=== PATIENT | male | born 1980 | race Two or more races ===

== ENCOUNTER 2017-06-08 14:29 | Emergency (ER) | payer BC ==
--- NOTE | 2017-06-08 15:35 | XR ---
Right ankle HISTORY: Trauma and pain, swelling 3 views of the right ankle No comparisons Ossific densities are present distal to the fibula which are displaced. There is associated soft tiss ue swelling. The larger of the fracture fragments may be better corticated than the other. No disloca tion. Bone mineralization is maintained. There is a plantar spur. Spurring also present at the tibiot alar joint, intertarsal joints. IMPRESSION: Findings likely represent avulsion or chip fractures of the distal fibula possibly appear ing ages. Soft tissue swelling. Osteoarthritis.
--- NOTE | 2017-06-08 16:04 | ED ---
General Adult HPI - General Chief complaint: Extremity Injury, Lower Stated complaint: R Leg Pain Time Seen by Provider: 06/08/17 15:07 Source: patient, RN notes reviewed Mode of arrival: ambulatory Limitations: no limitations - History of Present Illness Initial comments: 36-year-old male presents the emergency department for a chief complaint of right ankle pain. Patient states he was walking a couple weeks ago and twisted his ankle. He has had pain ever since. It is causing him to limp because it hurts to bear weight. Patient denies any pain in the calf, knee, or hip on the right extremity. Patient states he has full sensation in both lower extremities bilaterally. Patient has not seen anyone for this problem. - Related Data Home Medications Medication Instructions Recorded Confirmed Legatrin Pm 2 tab PO HS PRN 06/08/17 06/08/17 Allergies Allergy/AdvReac Type Severity Reaction Status Date / Time No Known Allergies Allergy Verified 06/08/17 15:08 Review of Systems ROS Statement: Those systems with pertinent positive or pertinent negative responses have been documented in the HPI. ROS Other: All systems not noted in ROS Statement are negative. Past Medical History Past Medical History: No Reported History History of Any Multi-Drug Resistant Organisms: None Reported Past Surgical History: No Surgical Hx Reported Past Psychological History: No Psychological Hx Reported Smoking Status: Never smoker Past Alcohol Use History: Occasional Past Drug Use History: None Reported General Exam Limitations: no limitations Head exam: Present: atraumatic, normocephalic, normal inspection Eye exam: Present: normal appearance, PERRL, EOMI. Absent: scleral icterus, conjunctival injection, periorbital swelling Pupils: Present: normal accommodation ENT exam: Present: normal exam, mucous membranes moist Respiratory exam: Present: normal lung sounds bilaterally. Absent: respiratory distress, wheezes, rales, rhonchi, stridor Cardiovascular Exam: Present: regular rate, normal rhythm, normal heart sounds. Absent: systolic murmur, diastolic murmur, rubs, gallop, clicks Extremities exam: Present: full ROM, tenderness (Tenderness of the right ankle) , normal capillary refill (Refill less than 2 seconds bilaterally), joint swelling (Swelling of the right ankle), other (Pedal pulses 2+ in the lower extremities bilaterally). Absent: calf tenderness (Patient denies tenderness in the r calf. Patient denies pain in the calf on the foot is flexed on the right extremity.) Neurological exam: Present: alert, oriented X3 Psychiatric exam: Present: normal affect, normal mood Course Vital Signs 06/08/17 14:53 Temperature 98.3 F Pulse Rate 99 Respiratory 18 Rate Blood Pressure 155/66 O2 Sat by Pulse 100 Oximetry Procedures - Procedures Initial comment: Neurovascular intact before splint application Indication: right fibula avulsion fracture Type: short saddle splint Wounds: no abrasions or lacerations underneath splint Neurovascular status: patient has sensation and movement of digits extending outside the splint, there is no cyanosis, capillary refill < 2 seconds Follow-up: patient given number for orthopedics and instructed to phone to make an appointment. Patient aware he can return to the Emergency Department if any difficulties. Medical Decision Making - Medical Decision Making 36-year-old male presents to the emergency department for a chief complaint of right ankle pain. Patient states he rolled his ankle a couple weeks ago and has a swelling in pain ever since. Patient states it is painful to bear weight. Patient has equal sensation in both extremities bilaterally. Capillary refill and pedal pulses 2+. Patient denies tenderness in the calves, knees, and hips bilaterally. Patient denies pain or tenderness in the foot. 3 xr views of the right ankle demonstrate avulsion or chip fracture of the distal fibula. Patient is splinted in a saddle splint. Neurovascular intact before and after splint is applied. Patient will follow up with orthopedics in one to 2 days. He will return to the emergency department if he has worsening of symptoms. Disposition Clinical Impression: Fibula fracture Disposition: HOME SELF-CARE Condition: Good Instructions: Ankle Fracture (ED) Additional Instructions: Please return to the emergency department if symptoms worsen. Otherwise follow- up with orthopedics in one to 2 days. Take ibuprofen and Tylenol for pain relief. Referrals: None,Stated [Primary Care Provider] - 1-2 days Kory Peoples MD [STAFF PHYSICIAN] - 1-2 days Time of Disposition: 16:06
[2017-06-08 16:48] VITALS: BP 128/78; PULSE 78; RESP 16; TEMP 97.6
== END 2017-06-08 16:48 | disposition home or self-care (01) ==
LOC: EC 14:29
DX: S82.831A Other fracture of upper and lower end of right fibula, initial encounter for closed fracture (principal); X50.1XXA Overexertion from prolonged static or awkward postures, initial encounter
CPT/HCPCS: 29515; 99283

== ENCOUNTER 2018-03-30 11:05 | Emergency (ER) | payer BC ==
[2018-03-30 11:11] VITALS: RESP 18
[2018-03-30] MEDS ORDERED: DEXAMETHASONE SOD PHOSPHATE 10 MG/ML 1 ML VIAL IV STA (12:10)
[2018-03-30] MEDS ORDERED: SODIUM CHLORIDE 0.9% 500 ML 500 ML IV ONE (12:10)
--- NOTE | 2018-03-30 12:13 | ED ---
General Adult HPI - General Chief complaint: Extremity Injury, Lower Stated complaint: body numbness Time Seen by Provider: 03/30/18 11:26 Source: patient, RN notes reviewed, old records reviewed Mode of arrival: wheelchair Limitations: no limitations - History of Present Illness Initial comments: 37 -year-old male presents with 3 days of bilateral lower extremity numbness and mild weakness. Patient states that he had similar symptoms approximately one year ago, did see an orthopedic physician and received epidural injections which improved his symptoms. Denies back pain. Denies injury. States the numbness is throughout both legs. He does report some weakness which is worse on the right. Denies any symptoms in his upper extremities. Patient states he has been dealing with some constipation, no bowel incontinence. No fever chills , no IV drug use, numbness is throughout the legs, no specific satellite anesthesia. - Related Data Previous Rx's Medication Instructions Recorded predniSONE 50 mg PO DAILY #5 tab 03/30/18 Allergies Allergy/AdvReac Type Severity Reaction Status Date / Time No Known Allergies Allergy Verified 03/30/18 11:44 Review of Systems ROS Statement: Those systems with pertinent positive or pertinent negative responses have been documented in the HPI. ROS Other: All systems not noted in ROS Statement are negative. Past Medical History Past Medical History: No Reported History History of Any Multi-Drug Resistant Organisms: None Reported Past Surgical History: No Surgical Hx Reported Additional Past Surgical History / Comment(s): 2016 colonscopy Past Psychological History: No Psychological Hx Reported Smoking Status: Never smoker Past Alcohol Use History: Occasional Past Drug Use History: None Reported General Exam Limitations: no limitations Head exam: Present: atraumatic, normocephalic Eye exam: Present: normal appearance, PERRL Neck exam: Present: normal inspection. Absent: tenderness Respiratory exam: Present: normal lung sounds bilaterally. Absent: respiratory distress, wheezes Cardiovascular Exam: Present: normal rhythm, tachycardia GI/Abdominal exam: Present: soft. Absent: distended, tenderness Rectal exam: Present: normal inspection, normal rectal tone. Absent: black stool, bloody stool Extremities exam: Present: normal inspection, normal capillary refill, other Back exam: Absent: tenderness, paraspinal tenderness, vertebral tenderness Neurological exam: Present: alert, oriented X3 Expanded Patient oriented to: Present: person, place, time Speech: Present: fluid speech Sensory exam: Upper Extremity Light Touch: Normal, Lower Extremity Light Touch: Abnormal Right, Abnormal Left Motor strength exam: RUE: 5, LUE: 5, RLE: 4, LLE: 5 DTR: Patellar (R): 1+, Patellar (L): 2+ Eye Response: (4) open spontaneously Motor Response: (6) obeys commands Verbal Response: (5) oriented Psychiatric exam: Present: normal affect, normal mood Skin exam: Present: warm, dry, intact. Absent: cyanosis, diaphoretic Course Vital Signs 03/30/18 03/30/18 11:06 14:30 Temperature 98.1 F Pulse Rate 111 H 82 Respiratory 18 18 Rate Blood Pressure 164/97 146/98 O2 Sat by Pulse 99 98 Oximetry Medical Decision Making - Medical Decision Making 37-year-old male presenting with bilateral lower extremity numbness for the past 3 days. On exam patient has decreased sensation bilaterally lower extremities. He has 2-3+ patellar reflex on the left, 1-2+ on the right. He has 4 out of 5 strength on the right 5 out of 5 strength in the left lower extremity. Remainder of normal exam in the upper extremities within normal limits. Patient admits that he had these same symptoms one year ago, he was seen by orthopedics and received epidural injections which improved his symptoms. Patient has no back pain, no pain on exam. There is concern for cord impingement or radiculopathy, CT of the thoracic and lumbar spine was obtained. Patient has moderate to severe left-sided foraminal stenosis L5-S1 as well as moderate disease throughout the lumbar and thoracic spine. No cord compression, no signs of cauda equina. Patient has normal CBC, normal CMP, normal urinalysis. Patient is able to void in the emergency department with postoperative residual of 49. Given that these symptoms are similar to previous episode one year ago which improved with steroid injection by orthopedics and will start patient on oral steroids and will refer her to orthopedics for further evaluation treatment. I also gave the patient outpatient neurology follow-up. He will return with any worsening or changing symptoms including progressive weakness or numbness. Worsening of his condition. - Lab Data Result diagrams: 03/30/18 11:57 03/30/18 11:57 Lab Results 03/30/18 03/30/18 03/30/18 Range/Units 11:57 11:57 13:04 WBC 8.4 (3.8-10.6) k/uL RBC 5.56 (4.30-5.90) m/uL Hgb 15.7 (13.0-17.5) gm/dL Hct 46.7 (39.0-53.0) % MCV 83.9 (80.0-100.0) fL MCH 28.2 (25.0-35.0) pg MCHC 33.6 (31.0-37.0) g/dL RDW 13.5 (11.5-15.5) % Plt Count 192 (150-450) k/uL Neutrophils % 69 % Lymphocytes % 23 % Monocytes % 5 % Eosinophils % 1 % Basophils % 1 % Neutrophils # 5.8 (1.3-7.7) k/uL Lymphocytes # 2.0 (1.0-4.8) k/uL Monocytes # 0.4 (0-1.0) k/uL Eosinophils # 0.1 (0-0.7) k/uL Basophils # 0.0 (0-0.2) k/uL Sodium 140 (137-145) mmol/L Potassium 4.5 (3.5-5.1) mmol/L Chloride 106 (98-107) mmol/L Carbon Dioxide 24 (22-30) mmol/L Anion Gap 10 mmol/L BUN 13 (9-20) mg/dL Creatinine 0.72 (0.66-1.25) mg/dL Est GFR (CKD-EPI)AfAm >90 (>60 ml/min/1.73 sqM) Est GFR (CKD-EPI)NonAf >90 (>60 ml/min/1.73 sqM) Glucose 145 H (74-99) mg/dL Calcium 9.4 (8.4-10.2) mg/dL Total Bilirubin 0.7 (0.2-1.3) mg/dL AST 30 (17-59) U/L ALT 55 (21-72) U/L Alkaline Phosphatase 77 (38-126) U/L Total Protein 7.7 (6.3-8.2) g/dL Albumin 4.9 (3.5-5.0) g/dL Urine Color Yellow Urine Appearance Clear (Clear) Urine pH 7.5 (5.0-8.0) Ur Specific [place] 1.014 (1.001-1.035) Urine Protein 1+ H (Negative) Urine Glucose (UA) Negative (Negative) Urine Ketones Negative (Negative) Urine Blood Negative (Negative) Urine Nitrite Negative (Negative) Urine Bilirubin Negative (Negative) Urine Urobilinogen <2.0 (<2.0) mg/dL Ur Leukocyte Esterase Negative (Negative) Urine Mucus Rare H (None) /hpf Disposition Clinical Impression: Lumbar radiculopathy Disposition: HOME SELF-CARE Condition: Fair Instructions: Lumbar Radiculopathy (ED) Prescriptions: predniSONE 50 mg PO DAILY #5 tab Is patient prescribed a controlled substance at d/c from ED?: No Referrals: None,Stated [Primary Care Provider] - 1-2 days Matt Johnson DO [Doctor of Osteopathic Medicine] - 1-2 days Nyasia Thayer MD [STAFF PHYSICIAN] - 1-2 days Time of Disposition: 15:40
[2018-03-30 12:17] LABS: ALT 55 U/L (21-72); AST 30 U/L (17-59); Albumin 4.9 g/dL (3.5-5.0); Alkaline Phosphatase 77 U/L (38-126); Anion Gap 10 mmol/L; Blood Urea Nitrogen 13 mg/dL (9-20); Calcium 9.4 mg/dL (8.4-10.2); Carbon Dioxide 24 mmol/L (22-30); Chloride 106 mmol/L (98-107); Glucose 145 mg/dL (74-99); Potassium 4.5 mmol/L (3.5-5.1); Sodium 140 mmol/L (137-145); Total Bilirubin 0.7 mg/dL (0.2-1.3); Total Protein 7.7 g/dL (6.3-8.2)
[2018-03-30 12:22] LABS: Basophils % (A) 1 %; Eosinophils # (A) 0.1 k/uL (0-0.7); Eosinophils % (A) 1 %; HCT 46.7 % (39.0-53.0); HGB 15.7 gm/dL (13.0-17.5); Lymphocytes % (A) 23 %; MCH 28.2 pg (25.0-35.0); MCHC 33.6 g/dL (31.0-37.0); MCV 83.9 fL (80.0-100.0); Mean Platelet Volume 7.4; Monocytes # (A) 0.4 k/uL (0-1.0); Monocytes % (A) 5 %; Neutrophils # (A) 5.8 k/uL (1.3-7.7); Neutrophils % (A) 69 %; Platelet Count 192 k/uL (150-450); RBC 5.56 m/uL (4.30-5.90); RDW 13.5 % (11.5-15.5); WBC 8.4 k/uL (3.8-10.6)
--- NOTE | 2018-03-30 13:03 | CT ---
EXAMINATION TYPE: CT thor lumbar spine wo con DATE OF EXAM: 03/30/2018 COMPARISON: None HISTORY: 37-year-old male Numbness from waist down to toes TECHNIQUE: Contiguous axial scanning of the thoracic and lumbar spine without IV contrast. Coronal an d sagittal reconstructions performed. CT DLP: 3190 mGycm Automated exposure control for dose reduction was used. FINDINGS: Thoracic spine: Vertebral body heights are preserved and alignment is maintained. No acute fracture of the thoracic spine. Scattered small endplate Schmorl's nodes are present mid to lower thoracic spine with mild endplate spondylosis. On the right, changes often variable mild neuroforaminal narrowing. On the left, changes result in moderate neuroforaminal narrowing at T3-T4 and T4-T5 and mild particul jaime at T5-T6. Lumbar spine: No prevertebral or paravertebral soft tissue abnormality seen. Mild facet degenerative change and mild multilevel degenerative disc disease with bulging discs. Smal l superior endplate Schmorl's node at L2. Vertebral body heights are preserved and alignment is maint ained. No pars interarticularis defect. No large focal disc herniation identified by CT. On the right, changes result in mild neural foraminal narrowing at L4-L5 and [id number] at L5-S 1. On the left, changes result in mild to moderate neuroforaminal narrowing at L4-L5 and moderate to severe at L5-S1. IMPRESSION: 1. NO VERTEBRAL COMPRESSION COLLAPSE OR MALALIGNMENT SEEN. 2. SCATTERED MILD DEGENERATIVE DISC DISEASE AND SMALL ENDPLATE SCHMORL'S NODES. 3. ADDITIONAL SCATTERED FACET ARTHROPATHY. CHANGES RESULT IN VARIABLE MILD NEUROFORAMINAL NARROWING O F THE THORACIC SPINE, MORE MODERATE ON THE LEFT AT T3-T4 AND T4-T5. 4. THERE MAY BE A MODERATE TO SEVERE LEFT-SIDED NEURAL FORAMINAL STENOSIS AT L5-S1 AND VARIABLE MILD TO MODERATE IN THE REMAINDER OF THE LOWER LUMBAR SPINE.
[2018-03-30 15:20] LABS: Appearance,Urine Clear (Clear); Bilirubin,Urine Negative (Negative); Blood,Urine Negative (Negative); Color,Urine Yellow; Glucose,Urine (UA) Negative (Negative); Ketones,Urine Negative (Negative); Leukocyte Esterase,Urine Negative (Negative); Mucus,Urine Rare /hpf; Nitrite,Urine Negative (Negative); PH, Urine 7.5 (5.0-8.0); Protein,Urine 1+ (Negative); Specific Gravity,Urine 1.014 (1.001-1.035); Urobilinogen,Urine <2.0 mg/dL (<2.0)
[2018-03-30 15:59] VITALS: BP 157/86; PULSE 88; TEMP 97.3
== END 2018-03-30 15:59 | disposition home or self-care (01) ==
LOC: EC 11:05
DX: M54.16 Radiculopathy, lumbar region (principal); R00.0 Tachycardia, unspecified; M99.73 Connective tissue and disc stenosis of intervertebral foramina of lumbar region; M48.8X4 Other specified spondylopathies, thoracic region; M48.8X5 Other specified spondylopathies, thoracolumbar region; K59.00 Constipation, unspecified
CPT/HCPCS: 51798; 36415; 80053; 85025; 81001; 72128; 72131; 99284; 96374; 96361 ×3; J1100

== ENCOUNTER 2018-09-20 04:06 | Observation (INO) | payer BC ==
[2018-09-20] MEDS ORDERED: SODIUM CHLORIDE 0.9% 1,000 ML IV ONE (07:06)
--- NOTE | 2018-09-20 07:37 | ED ---
Neuro HPI - General Chief Complaint: Neuro Symptoms/Deficit Stated Complaint: Leg numbness Time Seen by Provider: 09/20/18 06:35 Source: patient Mode of arrival: EMS Limitations: no limitations - History of Present Illness Is the patient presenting with stroke symptoms?: No Last Known Well Date: 09/19/18 Last Known Well Time: 08:45 -: hour(s) Initial Comments: This patient is 38-year-old man presenting to be evaluated for numbness of the bilateral lower extremities also the left upper extremity. Patient had been seen over at [facility]. He feels that the symptoms are similar to previous MS exacerbation that he had had. He was therefore transferred over here to have steroid therapy and neurology consultation. The patient with the previous flareups had reportedly had issues related to vision, that he states he is not having today. Location: left arm, right arm, left leg History of same: Yes Place: home Severity: mild Quality: tingling Improves With: none Worsens With: none Context: gradual onset Associated Symptoms: denies other symptoms Treatments Prior to Arrival: none - Related Data Home Medications: Home Medications Medication Instructions Recorded Confirmed Cholecalciferol (Vitamin D3) 2,000 unit PO DAILY 09/20/18 09/20/18 [Vitamin D3] L.acidoph,Paracasei, B.lactis 1 cap PO DAILY 09/20/18 09/20/18 [Probiotic] Polyethylene Glycol 3350 [Miralax] 17 gm PO DAILY 09/20/18 09/20/18 Sennosides/Docusate Sodium 2 tab PO HS 09/20/18 09/20/18 [Senna-S Laxative Tablet] Allergies/Adverse Reactions: Allergies Allergy/AdvReac Type Severity Reaction Status Date / Time No Known Allergies Allergy Verified 09/20/18 08:31 Review of Systems ROS Statement: Those systems with pertinent positive or pertinent negative responses have been documented in the HPI. ROS Other: All systems not noted in ROS Statement are negative. Constitutional: Denies: fever, chills, weakness Eyes: Denies: eye pain, vision change Respiratory: Denies: cough, dyspnea Cardiovascular: Denies: chest pain, palpitations, edema Gastrointestinal: Denies: abdominal pain, nausea, vomiting Genitourinary: Denies: dysuria, hematuria Musculoskeletal: Denies: back pain Skin: Denies: rash Neurological: Reports: headache, paresthesias. Denies: weakness, numbness, confusion, abnormal gait General Exam Limitations: no limitations General appearance: alert, in no apparent distress Head exam: Present: atraumatic, normocephalic Eye exam: Present: normal appearance, PERRL, EOMI. Absent: scleral icterus, conjunctival injection, nystagmus ENT exam: Present: normal oropharynx, mucous membranes moist Neck exam: Present: full ROM Respiratory exam: Present: normal lung sounds bilaterally. Absent: respiratory distress, wheezes, rales, rhonchi, stridor Cardiovascular Exam: Present: regular rate, normal rhythm, normal heart sounds. Absent: systolic murmur, diastolic murmur, rubs, gallop GI/Abdominal exam: Present: soft. Absent: distended, tenderness, guarding, rebo und Extremities exam: Present: normal inspection, normal capillary refill. Absent: pedal edema, calf tenderness Back exam: Present: normal inspection. Absent: CVA tenderness (R), CVA tenderness (L) Skin exam: Present: warm, dry, intact, normal color. Absent: rash Stroke MDM - Medical Decision Making Patient's 38-year-old man who gives history of prior MS. Transferred here from the other hospital for symptoms she states are identical to that flare. Patient be admitted here to have neurology consultation. He is started on high-dose Solu-Medrol. Past Medical History Past Medical History: No Reported History History of Any Multi-Drug Resistant Organisms: None Reported Past Surgical History: No Surgical Hx Reported Additional Past Surgical History / Comment(s): 2016 colonscopy Past Psychological History: No Psychological Hx Reported Smoking Status: Never smoker Past Alcohol Use History: Occasional Past Drug Use History: None Reported - Past Family History Father Family Medical History: No Reported History Course Vital Signs 09/20/18 09/20/18 04:08 08:00 Temperature 99.5 F 98.1 F Pulse Rate 90 98 Respiratory 14 18 Rate Blood Pressure 142/86 154/82 O2 Sat by Pulse 98 98 Oximetry Disposition Clinical Impression: Paresthesia Disposition: ADMITTED IP TO THIS HOSP Condition: Fair
[2018-09-20] MEDS: methylPREDNISolone SOD SUCC 1,000 MG in SODIUM CHLORIDE 0.9% 250 ML IVPB SCH (15:22)
--- NOTE | 2018-09-20 15:45 | P.HPIM ---
History of Present Illness H&P Date: 09/20/18 Chief Complaint: Numbness and tingling in the legs History of presenting complaint: This is a pleasant 38-year-old patient who follows with PCP Dr. Petersen. In March of this year patient was admitted to [facility] in [facility] and he had a workup done and he was told that he most likely had multiple sclerosis. Symptoms predominantly included numbness and tingling of the lower extremity. No obvious trouble in walking. Patient then followed up with a local neurologist Dr. Murray. He was then told that he most likely has multiple sclerosis, but after diagnosis cannot be confirmed. He did tell him to return to the ER if his symptoms came back. Patient now presents with worsening numbness and tingling in both the lower extremities. Denies any focal weakness. No headache. No change in vision. No fever or chills. No involvement of bladder or bowel. Dr. Herbert from neurology was consulted. Review of systems: GEN.: Tired EYES: None HEENT: None NECK: None RESPIRATORY: None CARDIOVASCULAR: None GASTROINTESTINAL: None GENITOURINARY: None MUSCULOSKELETAL: None LYMPHATICS: None HEMATOLOGICAL: None PSYCHIATRY: None NEUROLOGICAL: [As above Past medical history: Possible multiple sclerosis, diagnosis not confirmed Social history: Lives with his parents. 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 Denies smoking or drink alcohol or any recreational drugs. Family history: Reviewed, noncontributory to presentation Physical examination: VITAL SIGNS: 99.5, 90, 14, 142/86, 98% room air GENERAL: BMI 37.7, propped up in bed, comfortable. EYES: Pupils equal. Conjunctiva normal. HEENT: External appearance of nose and ears normal, oral cavity grossly normal. NECK: JVD not raised; masses not palpable. HEART: First and second heart sounds are normal; no edema. LUNGS: Respiratory rate normal; clear to auscultation. ABDOMEN: Soft, nontender, liver spleen not palpable, no masses palpable. PSYCH: Alert and oriented x3; mood and affect normal. NEUROLOGICAL: Cranial nerves grossly intact; no facial asymmetry, power grossly intact. Some decreased sensation distally. LYMPHATICS: No lymph nodes palpable in the axilla and neck Investigations, reviewed in the clinical context: No blood work Assessment: -This is a patient who has been diagnosed with a tentative diagnosis of multiple sclerosis. Both at [facility] and by the local neurologist Dr. Murray. Patient now presents with numbness tingling of the lower extremity, which somewhat similar to her prior presentation, felt to be a flareup of MS. -Obesity BMI 37.7 Plan: Neuro checks will be done. Lovenox for DVT prophylaxis. Dr. Herbert from [facility] is consulted. Patient has no significant trouble walking. Home medications reviewed and resumed. Past Medical History Past Medical History: Osteoarthritis (OA) Additional Past Medical History / Comment(s): worked up for MS since History of Any Multi-Drug Resistant Organisms: None Reported Past Surgical History: No Surgical Hx Reported Additional Past Surgical History / Comment(s): 2015 colonscopy for bloody stool Past Psychological History: No Psychological Hx Reported Smoking Status: Never smoker Past Alcohol Use History: Occasional Past Drug Use History: None Reported - Past Family History Father Family Medical History: No Reported History Medications and Allergies Home Medications Medication Instructions Recorded Confirmed Type Cholecalciferol (Vitamin D3) 2,000 unit PO DAILY 09/20/18 09/20/18 History [Vitamin D3] L.acidoph,Paracasei, B.lactis 1 cap PO DAILY 09/20/18 09/20/18 History [Probiotic] Polyethylene Glycol 3350 [Miralax] 17 gm PO DAILY 09/20/18 09/20/18 History Sennosides/Docusate Sodium 2 tab PO HS 09/20/18 09/20/18 History [Senna-S Laxative Tablet] Allergies Allergy/AdvReac Type Severity Reaction Status Date / Time No Known Allergies Allergy Verified 09/20/18 08:31 Physical Exam Vitals: Vital Signs Temp Pulse Pulse Resp BP BP Pulse Ox 09/20/18 15:00 97.9 F 108 H 16 137/76 96 09/20/18 09:00 98.2 F 97 16 155/79 98 09/20/18 08:00 98.1 F 98 18 154/82 98 09/20/18 04:08 99.5 F 90 14 142/86 98 Intake and Output 09/20/18 09/20/18 09/20/18 06:59 14:59 22:59 Intake Total 1100 Output Total 600 Balance 500 Intake: IV 700 Sodium Chloride 0.9% 1, 600 000 ml @ 75 mls/hr IV . [id number] Rx#:[id number] methylPREDNISolone SOD 100 SUCC 500 mg In Sodium Chloride 0.9% 100 ml @ 50 mls/hr IVPB ONCE STA Rx# :[id number] Oral 400 Output: Post Void Residual 600 Other: Weight 129.727 kg Thrombosis Risk Factor Assmnt - Choose All That Apply Any of the Below Risk Factors Present?: No
[2018-09-20] MEDS: POLYETHYLENE GLYCOL 3350 17 GM POWD.PACK PO SCH (17:15)
[2018-09-20] MEDS: ENOXAPARIN 40 MG/0.4 ML SYRINGE SQ SCH (17:15)
[2018-09-20] MEDS: LACTOBACILLUS ACIDOPH & BULGAR 1 EACH PACKET PO SCH (17:15)
--- NOTE | 2018-09-20 19:02 | CONS ---
CONSULTATION DATE OF SERVICE: 09/20/2018. REFERRING PHYSICIAN: Dr. Steiner HISTORY OF PRESENT ILLNESS: Thank you for allowing me to evaluate Nolan Lane who is a 38-year-old right-handed white male who presented to [facility] on 09/20/2018 as a transfer from [facility] for evaluation of lower extremity numbness. The patient states that this developed yesterday while he was at work at 9:00 am. He also noted "tingling" involving the bottom of both feet. He states both lower extremities were equally affected with numbness up to the hips bilaterally. He also noted numbness in the rectal region stating that over the past 2 days he has had difficulty telling when he has passed stool. He states the strength in the lower extremities was "okay" and he was still walking well despite these paresthesias. He denied paresthesias involving the trunk, upper extremities, or face. He denies urine/stool incontinence or urinary urgency. He does report a history of mild back pain but states that this did not significantly worsen when the lower extremity numbness developed. He denies neck pain or Lhermitte phenomenon. The patient states he developed very similar symptoms in March 2018 with numbness in the lower extremities, although at that time was accompanied by significant weakness to the point where the patient had difficulty ambulating. He was evaluated extensively at [facility], states he was hospitalized for 3 weeks and underwent MRIs of the brain, entire spine, lumbar puncture, and received steroids. He states that he was told that the MRI of the lumbar spine was unrevealing and he states that multiple sclerosis was strongly suspected. With the IV steroids and therapy, the patient gradually improved. He was ultimately discharged home with a walker, which he used through the end of April and ultimately returned to work in July of 2018. On an outpatient basis, the patient did follow up with Dr. Murray of Neurology in [place], who did not definitively diagnosed him with multiple sclerosis and did not start him on any new medications. Prior to the event in March, the patient states he has had no other episodes of transient neurologic dysfunction such as transient monocular blindness, transient focal weakness/numbness in the extremities or Lhermitte's phenomenon. ALLERGIES: No known drug allergies. MEDICATIONS: Vitamin D, senna S, MiraLAX, and probiotics. PAST MEDICAL HISTORY: Borderline diabetes mellitus and obesity. PAST SURGICAL HISTORY: Denies. SOCIAL HISTORY: The patient denied tobacco use and occasionally consumes alcohol. He denied illicit drug use or sexually transmitted diseases. He is single without children and lives in a house with his parents. He works in [employer]. He had not been using any assistive devices to ambulate at the time of this presentation. FAMILY HISTORY: Patient's mother has diabetes mellitus, there is no family history of multiple sclerosis, epilepsy, or other neurologic disease. REVIEW OF SYSTEMS: Fourteen systems are reviewed and no additional points are identified. The review of systems documented in history and physical. PHYSICAL EXAM: Upon my arrival to the patient's room he was lying in bed. The mother was at the bedside, the patient was receptive to the examiner, an accurate historian. Affect is normal. He is obese, deconditioned and appears of stated age. VITAL SIGNS: Blood pressure is 155/79 with pulse of 97, respiratory rate 16, temperature is 98.2, weight is 129.7 kg on a 6 foot 1 inch frame. Skin/extremities: Normal. Head and neck: No tenderness or signs of trauma. NECK: Supple without any meningeal signs. Arteries are nontender and without bruits. HEART: Regular rate and rhythm. HIGHER CORTICAL FUNCTION: MENTAL STATUS: Patient was alert and oriented to time, place, and person. He was able to name, repeat and read. There was no right and left disorientation, finger agnosia extinction to double simultaneous stimulation or dysarthria. CRANIAL NERVES II THROUGH XII: II: Pupils are equal and reactive to light symmetrically. No afferent pupillary defect. Visual nguyễn are intact to confrontation. III, IV, : The patient has left-sided ptosis, which mother states is longstanding, extraocular movements were full. No nystagmus. V: Pinprick light touch intact in all 3 divisions. Motor 5 intact. VII: No facial asymmetry or weakness. Acuity intact to finger rub. IX, X: Palate maura in the midline. XI: Trapezius strength intact, XII: Tongue protruded midline without fasciculation or atrophy. MOTOR EXAMINATION: There is no pronator drift. Normal bulk and tone is normal in all major muscles groups with no involuntary movements noted. Strength is 5/5 throughout including detailed examination of the lower extremities. SENSORY intact to pinprick, light touch in all extremities including detailed examination of the lower extremities. In particular, the patient reported no difference in the pinprick sensation between the upper and lower extremities, no sensory level across the thorax. Vibratory sensation was reduced to the iliac crest bilaterally, intact. Reflexes: Right-sided listed first. Biceps 2, 2, brachioradialis, 1, 1, triceps 1/1, patella 1, 1, ankle 0, 0. Plantar response appears extensor bilaterally. Del Angel's is absent. COORDINATION: Qyjcdo-ig-hazl, lcfr-oi-iorr movements are intact. Rapid alternating movements are symmetric with finger tapping. GAIT, STATION: Patient stood from the bed without difficulty. He ambulated with a broad-based gait with feet externally rotated. He was able to briefly get on his heels and toes. Romberg is positive. DIAGNOSTIC TESTING: Patient had a CT scan of the brain completed at [facility], which was read as negative. LAB WORK: From that facility includes a white blood count of 10.4, hemoglobin 13.9, platelet count 160. Sodium 138, potassium 4.4, BUN 16 with a creatinine 1.1. CRP was less than 0.2. ESR 1. Calcium 8.9, ALT 33, AST is 23. IMPRESSION: Numbness involving the lower extremities symmetrically and rectal region which began yesterday morning, likely secondary to transverse myelitis. The patient had very similar symptoms (with more prominent weakness) in March 2018 at which time, the patient underwent extensive workup at [facility], received steroids and MS was strongly suspected, but apparently not confirmed. RECOMMENDATIONS: 1. I discussed my impression and plan with the patient and his mother and they expressed understanding. Case was also discussed with nursing staff. 2. We will obtain records from [facility], including neurology consultation, imaging studies and lumbar puncture results. 3. Postvoid residuals x3. 4. We will obtain MRI of the brain and thoracic spine with and without contrast. 5. Lab work for etiologies of transverse myelitis. At the outside facility, the patient's sedimentation rate was 1 and C-reactive protein less than 0.2. 6. We will initiate Solu-Medrol 1000 mg daily x3 days with monitoring of blood sugars per primary service. 7. Physical therapy evaluation and treatment. 8. The patient will follow up with Dr. Murray of Neurology upon discharge. Thank you for allowing me to participate in the care of your patient. MMOMARL / IJN: [id number] /
[2018-09-20] MEDS ORDERED: SENNOSIDES-DOCUSATE SODIUM 1 EACH TAB PO SCH (21:00)
[2018-09-20 21:15] VITALS: RESP 20
[2018-09-21 03:23] LABS: HIV 1 AB Non-Reactive (Non-Reactive); HIV AB P24 Non-Reactive (Non-Reactive); HIV P24 AG Non-Reactive (Non-Reactive)
[2018-09-21 05:51] VITALS: BP 119/72; PULSE 95; TEMP 97.5
[2018-09-21 06:18] LABS: Rheumatoid Factor 6 IU/mL (0-15)
[2018-09-21] MEDS: methylPREDNISolone SOD SUCC 1,000 MG in SODIUM CHLORIDE 0.9% 250 ML IVPB SCH (07:13)
[2018-09-21] MEDS: ENOXAPARIN 40 MG/0.4 ML SYRINGE SQ SCH (07:13)
[2018-09-21] MEDS: LACTOBACILLUS ACIDOPH & BULGAR 1 EACH PACKET PO SCH (07:14)
[2018-09-21] MEDS: POLYETHYLENE GLYCOL 3350 17 GM POWD.PACK PO SCH (07:14)
--- NOTE | 2018-09-21 13:21 | XR ---
EXAMINATION TYPE: XR chest 2V DATE OF EXAM: 09/21/2018 COMPARISON: NONE TECHNIQUE: PA and lateral views submitted. HISTORY: Cough FINDINGS: The lungs are clear and there is no pneumothorax, pleural effusion, or focal pneumonia. Hypertrophi c change of the spine noted. No overt failure. IMPRESSION: 1. No acute process.
--- NOTE | 2018-09-21 22:38 | P.DS ---
Providers Date of admission: 09/20/18 07:06 Expected date of discharge: 09/21/18 Attending physician: Salas Steiner Consults: 09/20/18 07:06 Consult Physician Routine Consulting Provider: Ten Herbert Reason/Comments: Numbness. Possible MS. Do you want consulting provider notified?: Yes Primary care physician: Sherif Petersen [facility] Hospital Course: Hospital course: This is a pleasant 38-year-old patient who follows with PCP Dr. Petersen. In March of this year patient was admitted to [facility] in [facility] and he had a workup done and he was told that he most likely had multiple sclerosis. Symptoms predominantly included numbness and tingling of the lower extremity. No obvious trouble in walking. Patient then followed up with a local neurologist Dr. Murray. He was then told that he most likely has multiple sclerosis, but after diagnosis cannot be confirmed. He did tell him to return to the ER if his symptoms came back. Patient now presents with worsening numbness and tingling in both the lower extremities. Denies any focal weakness. No headache. No change in vision. No fever or chills. No involvement of bladder or bowel. Dr. Herbert from neurology was consulted. Today-patient's symptoms much better. Discussed with Dr. Herbert. We agreed to send the patient home on oral prednisone. Patient is oriented to workup so no further need for MRI was felt. He will follow-up with the neurologist Dr. Murray. Patient is ablating the hallway. Consultation: Dr. Herbert from neurology Physical examination: VITAL SIGNS: r 97.5, 95, 20, 119/72, 94% room air GENERAL: BMI 37.7, propped up in bed, comfortable. EYES: Pupils equal. Conjunctiva normal. HEENT: External appearance of nose and ears normal, oral cavity grossly normal. NECK: JVD not raised; masses not palpable. HEART: First and second heart sounds are normal; no edema. LUNGS: Respiratory rate normal; clear to auscultation. ABDOMEN: Soft, nontender, liver spleen not palpable, no masses palpable. PSYCH: Alert and oriented x3; mood and affect normal. NEUROLOGICAL: Cranial nerves grossly intact; no facial asymmetry, power grossly intact. Some decreased sensation distally. Investigations, reviewed in the clinical context: At angiotensin converting enzyme 29, rheumatoid factor , a knee screen negative, HIV's testing negative Treponema pallidum antibody nonreactive Assessment: -Acute flareup of MS. -Obesity BMI 37.7 Disposition: Home Patient Condition at Discharge: Stable Plan - Discharge Summary Discharge Rx Participant: No New Discharge Prescriptions: New predniSONE 60 mg PO BID #18 tab Continue Sennosides/Docusate Sodium [Senna-S Laxative Tablet] 2 tab PO HS Polyethylene Glycol 3350 [Miralax] 17 gm PO DAILY Cholecalciferol (Vitamin D3) [Vitamin D3] 2,000 unit PO DAILY L.acidoph,Paracasei, B.lactis [Probiotic] 1 cap PO DAILY Discharge Medication List Cholecalciferol (Vitamin D3) [Vitamin D3] 2,000 unit PO DAILY 09/20/18 [History] L.acidoph,Paracasei, B.lactis [Probiotic] 1 cap PO DAILY 09/20/18 [History] Polyethylene Glycol 3350 [Miralax] 17 gm PO DAILY 09/20/18 [History] Sennosides/Docusate Sodium [Senna-S Laxative Tablet] 2 tab PO HS 09/20/18 [History] predniSONE 60 mg PO BID #18 tab 09/21/18 [Rx] Follow up Appointment(s)/Referral(s): Sherif Petersen MD [Primary Care Provider] - 10/05/18 10:20 am Raymond Murray MD [STAFF PHYSICIAN] - 09/27/18 11:10 am Patient Instructions/Handouts: Multiple Sclerosis (DC) Activity/Diet/Wound Care/Special Instructions: make appt with dr murray before dc Discharge/Stand Alone Forms: Work/School Release / Restrict Discharge Disposition: HOME SELF-CARE
[2018-09-22 12:18] LABS: Lyme IgG/IgM 0.07 Index
== END 2018-09-21 14:01 | disposition home or self-care (01) ==
LOC: EC 04:06 → 4MS4W 07:06
PROVIDERS: ADMIT Hospitalist; ATTEND Hospitalist
DX: G35 Multiple sclerosis (principal); Z79.899 Other long term (current) drug therapy; M19.90 Unspecified osteoarthritis, unspecified site; R73.03 Prediabetes; M54.9 Dorsalgia, unspecified; E66.9 Obesity, unspecified; Z68.37 Body mass index [BMI] 37.0-37.9, adult; Z87.19 Personal history of other diseases of the digestive system; Z83.3 Family history of diabetes mellitus
CPT/HCPCS: 96361 ×2; 96366 ×2; 96372 ×2; 96365; 99285; 97161; 82164; 86431; 86618; 86780; 86038; 87390; 71046; G0378 ×2; J2930 ×3; J1650 ×2

== ENCOUNTER 2021-02-23 06:18 | Day surgery (SDC) | payer BC ==
[2021-02-19 11:02] VITALS: BMI 39.5
[2021-02-23] MEDS ORDERED: LIDOCAINE 1% (10MG/ML) FOR IV START INTRADERMA PRN (07:16)
[2021-02-23] MEDS ORDERED: LACTATED RINGERS 1,000 ML IV SCH (07:16)
[2021-02-23 07:27] VITALS: TEMP 97.4
[2021-02-23] MEDS ORDERED: LIDOCAINE 1% INJ 10MG/ML (20 ML MDV) ONE (07:35)
[2021-02-23] MEDS ORDERED: PROPOFOL 10 MG/ML 20 ML VIAL IV ONE (07:35)
--- NOTE | 2021-02-23 07:38 | P.GSHP ---
History of Present Illness H&P Date: 02/23/21 CHIEF COMPLAINT: Colon screen HISTORY OF PRESENT ILLNESS: The patient is a 40-year-old male who presents for colon screen. Lower endoscopy was offered for further evaluation and management. PAST MEDICAL HISTORY: Please see list. PAST SURGICAL HISTORY: Please see list. MEDICATIONS: Please see list. ALLERGIES: Please see list. SOCIAL HISTORY: No illicit drug use FAMILY HISTORY: No reports of Crohn disease or ulcerative colitis. REVIEW OF ORGAN SYSTEMS: CONSTITUTIONAL: No reports of fevers or chills. PHYSICAL EXAM: VITAL SIGNS: Stable GENERAL: Well-developed pleasant in no acute distress. HEENT: No scleral icterus. Extraocular movements grossly intact. Moist buccal mucosa. NECK: Supple without lymphadenopathy. CHEST: Unlabored respirations. Equal bilateral excursions. CARDIOVASCULAR: Regular rate and rhythm. Distal 2+ pulses. ABDOMEN: Soft, nontender, nondistended. MUSCULOSKELETAL: No clubbing, cyanosis, or edema. ASSESSMENT: 1. Colon screen. PLAN: 1. Recommend proceeding with a lower endoscopy Past Medical History Past Medical History: No Reported History, Hypertension, Neurologic Disorder Additional Past Medical History / Comment(s): MS. hx colon polyps History of Any Multi-Drug Resistant Organisms: None Reported Past Surgical History: No Surgical Hx Reported Additional Past Surgical History / Comment(s): 2016 colonscopy Past Anesthesia/Blood Transfusion Reactions: No Reported Reaction Smoking Status: Never smoker - Past Family History Father Family Medical History: No Reported History Medications and Allergies Home Medications Medication Instructions Recorded Confirmed Type Polyethylene Glycol 3350 [Miralax] 17 gm PO DAILY 09/20/18 02/19/21 History Sennosides/Docusate Sodium 2 tab PO HS 09/20/18 02/19/21 History [Senna-S Laxative Tablet] Ergocalciferol [Vitamin D2 (1250 1,250 mcg PO MO 02/19/21 02/19/21 History Mcg = 70021 Iu)] Lisinopril (Unk.Dose) 1 tab PO DAILY 02/19/21 02/19/21 History Ozanimod Hydrochloride [Zeposia] 0.92 mg PO DAILY 02/19/21 02/19/21 History Allergies Allergy/AdvReac Type Severity Reaction Status Date / Time No Known Allergies Allergy Verified 02/23/21 07:20 Surgical - Exam Vital Signs Temp Pulse Resp BP Pulse Ox 97.4 F L 89 16 151/82 98 02/23/21 07:24 02/23/21 07:24 02/23/21 07:24 02/23/21 07:24 02/23/21 07:24
--- NOTE | 2021-02-23 08:06 | P.OP ---
Date of Procedure: 02/23/21 Description of Procedure: PREOPERATIVE DIAGNOSIS: Personal history colon polyps Colonoscopy screening POSTOPERATIVE DIAGNOSIS: Personal history colon polyps Colonoscopy screening OPERATION: Colonoscopy to the cecum, ileocecal valve and appendiceal orifice. SURGEON: Amanda Joiner MD. ANESTHESIA: MAC. INDICATIONS: The patient is a 40-year-old male who presents for colonoscopy screening. Last colonoscopy 5 years ago with polyps identified. Benefits and risks were described and informed consent was obtained. DESCRIPTION OF PROCEDURE: The patient had undergone Sutab prep. The patient had been brought into the operating room and laid in the left lateral decubitus position. After adequate intravenous sedation, the rectum was examined with 2% lidocaine jelly. No external hemorrhoids were encountered. The rectal tone was within normal limits. No lesions were palpated in the rectal vault. An Olympus colonoscope was advanced until the cecum, ileocecal valve and appendiceal orifice were clearly viewed. The prep was good. No scattered diverticulosis was encountered. No adenomas were found. No evidence of focal colitis was found. Retroflexion of the scope demonstrated grade 1 internal hemorrhoids without active bleeding or inflammation. The colon was desufflated. The patient had tolerated the procedure well. Withdrawal time was over 6 minutes. 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 No focal colitis. RECOMMENDATIONS: Lower endoscopy in 5 years, 2025 Plan - Discharge Summary Discharge Rx Participant: No New Discharge Prescriptions: Continue Sennosides/Docusate Sodium [Senna-S Laxative Tablet] 2 tab PO HS Polyethylene Glycol 3350 [Miralax] 17 gm PO DAILY Lisinopril (Unk.Dose) 1 tab PO DAILY Ergocalciferol [Vitamin D2 (1250 Mcg = 01291 Iu)] 1,250 mcg PO MO Ozanimod Hydrochloride [Zeposia] 0.92 mg PO DAILY Discharge Medication List Polyethylene Glycol 3350 [Miralax] 17 gm PO DAILY 09/20/18 [History] Sennosides/Docusate Sodium [Senna-S Laxative Tablet] 2 tab PO HS 09/20/18 [History] Ergocalciferol [Vitamin D2 (1250 Mcg = 90197 Iu)] 1,250 mcg PO MO 02/19/21 [History] Lisinopril (Unk.Dose) 1 tab PO DAILY 02/19/21 [History] Ozanimod Hydrochloride [Zeposia] 0.92 mg PO DAILY 02/19/21 [History] Follow up Appointment(s)/Referral(s): Amanda Joiner MD [STAFF PHYSICIAN] - As Needed Patient Instructions/Handouts: *Surgery [facility] - (Anesthesia) Endoscopy Discharge Instructions, Colonoscopy (DC) Activity/Diet/Wound Care/Special Instructions: Repeat colonoscopy 5 years, 2025 Discharge Disposition: HOME SELF-CARE
[2021-02-23 08:26] VITALS: BP 131/81; PULSE 76; RESP 20
== END 2021-02-23 08:53 | disposition home or self-care (01) ==
LOC: ORWHC2ENDO 06:18
PROVIDERS: ATTEND Surgery Plastic and Reconstructive Surgery
DX: Z12.11 Encounter for screening for malignant neoplasm of colon (principal); Z86.010 Personal history of colon polyps; K64.0 First degree hemorrhoids; Q27.33 Arteriovenous malformation of digestive system vessel; I10 Essential (primary) hypertension; G35 Multiple sclerosis; Z98.890 Other specified postprocedural states; Z79.899 Other long term (current) drug therapy
CPT/HCPCS: J2001; J2704; G0105; 45378

== ENCOUNTER 2023-04-11 08:18 | Day surgery (SDC) | payer BC ==
[2023-04-11 09:13] VITALS: BP 135/87; PULSE 70; RESP 16; TEMP 97.4
--- NOTE | 2023-04-11 12:12 | US ---
EXAMINATION TYPE: US FNA first lesion, US FNA each additional lesion (right and left parotid gland g land lesions) DATE OF EXAM: 04/11/2023 10:47 AM REASON FOR EXAM:R22.1 LOCALIZED SWELLING, MASS AND LUMP, NECK RADIOLOGIST: Dr Otero PROCEDURE: Initial scanning showed the bilateral parotid tail cystic nodules measuring: * Left: 1.0 x 0.8 x 0.6 cm. * Right: 1.8 x 1.5 x 1.0 cm. These are targeted for FNA. The procedure, along with the risks and complications were discussed with the patient. Patient agreed to proceed with the procedure. A consent was signed and placed in patient's chart. Maximum sterile barrier technique was utilized. Timeout was performed by myself. Each side of the nec k was sterilely prepped and draped in the usual fashion in turn. 5 milliliters of 1% Lidocaine were u tilized to anesthetize the superficial and deep soft tissues at each nodule and turn. LEFT: Under ultrasound guidance, 3 passes were made into the cystic nodule with a 5 cc syringe suctio n. After each pass, the sample was placed on a slide and then sent for pathology. There is partial co llapse of the cystic nodule with the aspirations. Some initial serosanguineous aspirate is obtained. RIGHT: Under ultrasound guidance, 3 passes were made into the cystic nodule with a 5 cc syringe sucti on. After each pass, the sample was placed on a slide and then sent for pathology. There is partial c ollapse of the cystic nodule with the aspirations. Some initial serosanguineous aspirate is obtained. Upon conclusion, hemostasis was achieved, dressing place, and patient was discharged home in satisfac tory condition. IMPRESSION: Successful FNA of a cystic nodule within the right and left parotid glands. Pathology pending.
== END 2023-04-11 10:45 | disposition home or self-care (01) ==
LOC: RADPROMAIN 08:18
PROVIDERS: ATTEND Otolaryngology
DX: R22.1 Localized swelling, mass and lump, neck (principal)
CPT/HCPCS: 10005; 10006; 88173; 88305

== ENCOUNTER → 2023-05-30 | Outpatient (CLI) | payer BC ==
--- NOTE | 2023-05-30 17:11 | US ---
EXAMINATION TYPE: US Parotid glands, st tissue head/neck DATE OF EXAM: 05/30/2023 COMPARISON: MRI 12/14/2022 CT 09/20/2028 T9. CLINICAL INDICATION: Male, 42 years old with history of R22.1 LOCALIZED SWELLING,MASS AND LUMP,NECK; known parotid lesions and h/o of FNA's, no pain TECHNIQUE: Parotid FINDINGS: Right parotid hypoechoic area = 1.6 x 0.8 x 0.7cm Left parotid hypoechoic area = 1.2 x 1.1 x 0.7cm IMPRESSION: Bilateral lesions identified within the parotid gland simple appearing cysts as seen on prior MRI.
== END | disposition home or self-care (01) ==
LOC: RADUSWWP 14:26
PROVIDERS: ATTEND Otolaryngology
DX: K11.8 Other diseases of salivary glands (principal); R22.1 Localized swelling, mass and lump, neck
CPT/HCPCS: 76536